=== PATIENT | female | born 1990 | race Caucasian/White ===

== ENCOUNTER 2018-05-06 10:42 | Inpatient (IN) | payer OTHER ==
[2018-05-06] MEDS ORDERED: IBUPROFEN 600 MG TAB PO (11:30)
[2018-05-06] MEDS ORDERED: BUTORPHANOL 2 MG INJ IV (11:30)
[2018-05-06] MEDS ORDERED: CARBOPROST 250 MCG INJ IM (11:30)
[2018-05-06] MEDS ORDERED: LIDOCAINE 1% (MPF) 30 ML INJ INJ (11:30)
[2018-05-06] MEDS ORDERED: BUTORPHANOL 1 MG INJ IV (11:30)
[2018-05-06] MEDS ORDERED: MISOPROSTOL 200 MCG TAB PR (11:30)
[2018-05-06 12:35] LABS: ADD MAN DIFF? NO
[2018-05-06 12:37] LABS: WHITE BLOOD COUNT 10.5 10^3/ul (4.8-10.8)
[2018-05-06 12:37] LABS: BASOPHILS % 0.4 % (0.0-2.0); EOSINOPHILS # 0.1 10^3/ul (0.0-0.5); EOSINOPHILS % 0.9 % (0.0-7.0); HEMATOCRIT 40.3 % (37.0-47.0); HEMOGLOBIN 12.9 g/dl (12.0-16.0); LYMPHOCYTES # 1.9 10^3/ul (0.8-2.9); LYMPHOCYTES % 18.1 % (15.0-51.0); MEAN CORPUSCULAR VOLUME 84.3 fl (82.0-101.0); MEAN PLATELET VOLUME 11.2 fl (7.4-10.4); MONOCYTE # 0.8 10^3/ul (0.3-0.9); MONOCYTES % 7.5 % (0.0-11.0); NEUTROPHIL # 7.6 10^3/ul (1.6-7.5); NEUTROPHILS % 72.1 % (39.0-77.0); PLATELET COUNT 242 10^3/UL (140-415); RED BLOOD COUNT 4.78 10^6/ul (4.20-5.40); RED CELL DISTRIBUTION WIDTH 15.2 % (11.5-14.5)
[2018-05-06 13:01] LABS: INR 0.84; PROTIME 11.6 Sec (11.9-14.9); PT RATIO 0.9
[2018-05-06 13:02] LABS: PARTIAL THROMBOPLASTIN TIME 27.3 Sec (23.0-35.0)
[2018-05-06] MEDS: LACTATED RINGER'S 1,000 ML IV (13:05)
[2018-05-06 13:31] LABS: HEPATITIS B SURFACE ANTIGEN NEGATIVE (NEGATIVE)
[2018-05-06] MEDS: DEXTROSE 5%-LR 1,000 ML IV ×2 (13:51→23:19)
[2018-05-06 15:10] LABS: RAPID PLASMA REAGIN NONREACTIVE (NR)
[2018-05-06] MEDS: OXYTOCIN 30 UNITS/LR 500 ML IV (15:51)
[2018-05-07] MEDS ORDERED: ONDANSETRON 4 MG INJ IV ×3 (03:00→23:30)
[2018-05-07] MEDS ORDERED: NALOXONE (0.4 MG/ML) INJ IV ×2 (03:00→23:30)
[2018-05-07] MEDS ORDERED: DIPHENHYDRAMINE 50 MG INJ IV ×3 (03:00→23:30)
[2018-05-07] MEDS: LACTATED RINGER'S 1,000 ML IV ×4 (03:12→10:58)
[2018-05-07] MEDS: DEXTROSE 5%-LR 1,000 ML IV ×3 (03:25→12:45)
[2018-05-07] MEDS: FENTAnyl 2MCG/ML-ROPIV 0.2% 100 ML BAG EPI ×3 (03:53→17:20)
[2018-05-07] MEDS: AMPICILLIN 2 GM/NS (PMX) 100 ML IV (10:56)
[2018-05-07] MEDS: ACETAMINOPHEN 325 MG TAB PO ×2 (10:56→16:55)
[2018-05-07] MEDS: AMPICILLIN 1 GM/NS (PMX) 50 ML IV ×2 (15:04→18:48)
[2018-05-07] MEDS: GENTAMICIN 120 MG/NS (PMX) 100 ML IVPB (17:25)
[2018-05-07] MEDS: ACCU-CHEK XX ×6 (19:36→19:37)
[2018-05-07] MEDS ORDERED: CLINDAMYCIN 900 MG/D5W (PMX) 50 ML IVPB ×2 (22:16→22:30)
[2018-05-07] MEDS ORDERED: OXYTOCIN 30 UNITS/LR 500 ML IV ×2 (22:30→23:30)
[2018-05-07] MEDS ORDERED: MISOPROSTOL 200 MCG TAB PR ×2 (22:30→23:30)
[2018-05-07] MEDS ORDERED: METHYLERGONOVINE 0.2 MG INJ IM ×2 (22:30→23:30)
[2018-05-07] MEDS ORDERED: CARBOPROST 250 MCG INJ IM ×2 (22:30→23:30)
[2018-05-07] MEDS ORDERED: morphine SULFATE/PF (10 MG/10 ML) INJ (22:45)
[2018-05-07] MEDS ORDERED: OXYTOCIN 10 UNIT INJ (22:46)
[2018-05-07] MEDS ORDERED: FAMOTIDINE 20 MG INJ (23:24)
[2018-05-07] MEDS ORDERED: HYDROmorphONE 1 MG/5 ML IV SYRINGE IV ×3 (23:30)
[2018-05-07] MEDS ORDERED: ZOLPIDEM 5 MG TAB PO (23:30)
[2018-05-07] MEDS ORDERED: NACL 0.9% 3 ML SYG IV (23:30)
[2018-05-07] MEDS ORDERED: GENTAMICIN 80 MG in SOD CHLORIDE 0.9% 100 ML IVPB (23:30)
[2018-05-07] MEDS ORDERED: FENTAnyl 50 MCG/ML VIAL IV ×2 (23:30)
[2018-05-07] MEDS ORDERED: HYDROmorphONE 0.5 MG/0.5 ML SYG IV ×2 (23:30)
[2018-05-08] MEDS: ACCU-CHEK XX ×6 (00:17→20:05)
[2018-05-08] MEDS: DEXTROSE 5%-LR 1,000 ML IV (00:17)
[2018-05-08] MEDS: OXYTOCIN 30 UNITS/LR 500 ML IV ×4 (00:18→01:45)
[2018-05-08] MEDS: METHYLERGONOVINE 0.2 MG INJ IM (00:19)
[2018-05-08] MEDS: LACTATED RINGER'S 1,000 ML IV (00:19)
[2018-05-08] MEDS: MINERAL OIL LIGHT 10 ML VIAL TOP (00:20)
[2018-05-08] MEDS: CLINDAMYCIN 900 MG/D5W (PMX) 50 ML IVPB ×3 (00:28→15:19)
[2018-05-08] MEDS: KETOROLAC 30 MG INJ IV ×4 (00:28→21:37)
[2018-05-08] MEDS: AMPICILLIN 2 GM/NS (PMX) 100 ML IV ×5 (01:46→23:46)
[2018-05-08] MEDS ORDERED: GENTAMICIN 80 MG/NS (PMX) 50 ML IVPB (02:00)
[2018-05-08 07:48] LABS: ABNORMAL IP MESSAGE 1; HEMATOCRIT 35.3 % (37.0-47.0); HEMOGLOBIN 11.6 g/dl (12.0-16.0); MEAN CORPUSCULAR HEMOGLOBIN 27.6 pg (29.0-33.0); MEAN CORPUSCULAR HGB CONC 32.9 g/dl (32.0-37.0); MEAN PLATELET VOLUME 11.1 fl (7.4-10.4); PLATELET COUNT 188 10^3/UL (140-415); RED CELL DISTRIBUTION WIDTH 15.5 % (11.5-14.5)
[2018-05-08 07:48] LABS: WHITE BLOOD COUNT 27.9 10^3/ul (4.8-10.8)
[2018-05-08 07:58] LABS: ADD MAN DIFF? YES; POSITIVE DIFF @See below
[2018-05-08 09:13] LABS: ANISOCYTOSIS 2+ (0-0); BAND NEUTROPHILS #M 11.9 10^3/ul (0.0-0.6); BAND NEUTROPHILS % (M) 43 % (0-4); LYMPHOCYTES #M 2.2 10^3/ul (0.8-2.9); LYMPHOCYTES % (M) 8 % (15-51); METAMYELOCYTES #M 0.2 10^3/ul (0.0-0.0); METAMYELOCYTES %M 1 % (0-0); MICROCYTOSIS 2+ (0-0); MONOCYTE #M 0.5 10^3/ul (0.3-0.9); MONOCYTES % (M) 2 % (0-11); PLATELET ESTIMATE NORMAL; SEG NEUT #M 16.2 10^3/ul (1.6-7.5); SEGMENTED NEUTROPHILS (M) % 46 % (39-77); SMUDGE%M 2 % (0-0)
[2018-05-08] MEDS: SENNA/DOCUSATE NA (8.6MG/50MG) TAB PO ×2 (10:25→21:00)
[2018-05-08] MEDS: GENTAMICIN 80 MG/NS (PMX) 50 ML IVPB ×2 (11:39→21:07)
[2018-05-08] MEDS: OXYCODONE/ACETAMINOPHEN (5/325) TAB PO (23:44)
[2018-05-09] MEDS: OXYCODONE/ACETAMINOPHEN (5/325) TAB PO ×3 (05:13→22:15)
[2018-05-09] MEDS: GENTAMICIN 80 MG/NS (PMX) 50 ML IVPB (05:13)
[2018-05-09] MEDS: IBUPROFEN 600 MG TAB PO ×6 (06:00→23:35)
[2018-05-09] MEDS: AMPICILLIN 2 GM/NS (PMX) 100 ML IV ×2 (06:03→12:00)
[2018-05-09] MEDS: ACCU-CHEK XX ×4 (07:30→23:46)
[2018-05-09 07:46] LABS: ADD MAN DIFF? NO
[2018-05-09 07:50] LABS: BASOPHILS % 0.1 % (0.0-2.0); EOSINOPHILS # 0.1 10^3/ul (0.0-0.5); EOSINOPHILS % 0.4 % (0.0-7.0); HEMATOCRIT 29.4 % (37.0-47.0); HEMOGLOBIN 9.7 g/dl (12.0-16.0); LYMPHOCYTES # 1.8 10^3/ul (0.8-2.9); LYMPHOCYTES % 8.7 % (15.0-51.0); MONOCYTE # 1.1 10^3/ul (0.3-0.9); MONOCYTES % 5.2 % (0.0-11.0); NEUTROPHIL # 17.2 10^3/ul (1.6-7.5); NEUTROPHILS % 85.1 % (39.0-77.0); PLATELET COUNT 170 10^3/UL (140-415); RED BLOOD COUNT 3.46 10^6/ul (4.20-5.40); RED CELL DISTRIBUTION WIDTH 15.9 % (11.5-14.5)
[2018-05-09 07:50] LABS: WHITE BLOOD COUNT 20.2 10^3/ul (4.8-10.8)
[2018-05-09] MEDS: SENNA/DOCUSATE NA (8.6MG/50MG) TAB PO ×2 (08:18→22:15)
[2018-05-09] MEDS: LANOLIN HPA 1 PKT TOP (08:19)
[2018-05-09] MEDS: FERROUS SULFATE (EC) 325 MG TAB PO (22:15)
[2018-05-10] MEDS: IBUPROFEN 600 MG TAB PO ×2 (06:18→12:07)
[2018-05-10] MEDS: OXYCODONE/ACETAMINOPHEN (5/325) TAB PO (06:19)
[2018-05-10] MEDS: ACCU-CHEK XX ×2 (07:30→10:05)
[2018-05-10 08:04] LABS: ADD MAN DIFF? NO
[2018-05-10 08:13] LABS: WHITE BLOOD COUNT 14.3 10^3/ul (4.8-10.8)
[2018-05-10 08:13] LABS: BASOPHILS % 0.1 % (0.0-2.0); EOSINOPHILS # 0.2 10^3/ul (0.0-0.5); EOSINOPHILS % 1.2 % (0.0-7.0); HEMATOCRIT 28.6 % (37.0-47.0); HEMOGLOBIN 9.4 g/dl (12.0-16.0); LYMPHOCYTES # 1.5 10^3/ul (0.8-2.9); LYMPHOCYTES % 10.8 % (15.0-51.0); MEAN CORPUSCULAR HEMOGLOBIN 27.8 pg (29.0-33.0); MEAN CORPUSCULAR HGB CONC 32.9 g/dl (32.0-37.0); MEAN CORPUSCULAR VOLUME 84.6 fl (82.0-101.0); MONOCYTE # 0.8 10^3/ul (0.3-0.9); MONOCYTES % 5.3 % (0.0-11.0); NEUTROPHIL # 11.7 10^3/ul (1.6-7.5); NEUTROPHILS % 81.9 % (39.0-77.0); PLATELET COUNT 203 10^3/UL (140-415); RED BLOOD COUNT 3.38 10^6/ul (4.20-5.40); RED CELL DISTRIBUTION WIDTH 15.7 % (11.5-14.5)
[2018-05-10] MEDS: SENNA/DOCUSATE NA (8.6MG/50MG) TAB PO (08:35)
[2018-05-10] MEDS: FERROUS SULFATE (EC) 325 MG TAB PO (08:57)
== END 2018-05-10 13:45 | disposition home or self-care (01) | DRG 786 ==
LOC: PP1 05-08 02:20 → L-D 10:42
PROVIDERS: Obstetrics & Gynecology
PROC: 10D00Z1 Extraction of Products of Conception, Low, Open Approach (ICD-10-PCS; principal; 2018-05-07 22:30)
DX: O24.420 Gestational diabetes mellitus in childbirth, diet controlled (principal); O41.1230 Chorioamnionitis, third trimester, not applicable or unspecified; O62.0 Primary inadequate contractions; O77.0 Labor and delivery complicated by meconium in amniotic fluid; Z3A.39 39 weeks gestation of pregnancy; Z37.0 Single live birth
CPT/HCPCS: 62319; 76815; 82962; 85025; 85610; 85730; 86592; 86850; 86900; 86901; 87340; 99464